=== PATIENT | male | born 1970 | race Caucasian/White ===

== ENCOUNTER 2017-07-22 05:54 | Emergency (ER) | payer SELFPAY ==
[~2017-07-22] VITALS: Ht 180.3 cm; Wt 79.3 kg
[2017-07-22] MEDS ORDERED: MORGIDOX 1X100100 MG PO (06:12)
[2017-07-22] MEDS ORDERED: PROAIR HFA0.09 MG/AC IH (06:12)
[2017-07-22 07:25] LABS: HEMATOCRIT 43.2 % (42.0-52.0); HEMOGLOBIN 14.7 g/dL (13.5-18.0); MEAN CELL VOLUME 96 fl (78-100); MEAN CORPUSCULAR HEMOGLOBIN 33 pg (27-31); MEAN CORPUSCULAR HGB CONC 34 g/dL (33-37); MEAN PLATELET VOLUME 9.3 fl (7.4-10.4); PLATELET COUNT 201 K/mm3 (130-400); RED BLOOD COUNT 4.52 M/mm3 (4.20-5.60); RED CELL DISTRIBUTION WIDTH 13.1 % (11.5-14.5); WHITE BLOOD COUNT 5.1 K/mm3 (4.8-10.8)
[2017-07-22 07:38] LABS: ALBUMIN 4.1 g/dL (3.5-5.0); BUN/CREATININE RATIO 13.8 (6.0-26.0); CALCIUM 8.9 mg/dL (8.4-10.2); POTASSIUM 4.6 mmol/L (3.6-5.0); TOTAL BILIRUBIN 0.5 mg/dL (0.2-1.3); TOTAL PROTEIN 7.9 g/dL (6.3-8.2)
[2017-07-22 07:48] LABS: PH-URINE 6.5 (5.0 - 8.0); URINE APPEARANCE CLEAR; URINE BILIRUBIN NEGATIVE (NEGATIVE); URINE BLOOD TRACE (NEGATIVE); URINE COLOR YELLOW; URINE GLUCOSE NEGATIVE (NEGATIVE); URINE KETONE NEGATIVE (NEGATIVE); URINE LEUKOCYTE ESTERASE NEGATIVE (NEGATIVE); URINE NITRATE NEGATIVE (NEGATIVE); URINE PROTEIN(semi-quant) NEGATIVE (NEGATIVE); URINE UROBILINOGEN NORMAL (NORMAL); URINE WBC 0-1 /hpf (0-3)
[2017-07-22] MEDS ORDERED: ZITHROMAX 250M250 MG PO (07:57)
[2017-07-22 08:01] LABS: BAND 9 % (0-10); LYMPHOCYTE 24 % (20-51); MONOCYTE 13 % (3-10); NEUTROPHILS 51 % (42-75)
[2017-07-22 08:08] VITALS: BP 123/72
== END 2017-07-22 08:06 | disposition home or self-care (01) ==
LOC: ED 05:54
PROVIDERS: Nurse Practitioner Primary Care
DX: J18.9 Pneumonia, unspecified organism (principal); Z87.891 Personal history of nicotine dependence

== ENCOUNTER → 2017-07-23 | Outpatient (CLI) | payer SELFPAY ==
[2017-07-22 08:08] VITALS: BP 123/72
[~2017-07-23] MED LIST: MORGIDOX 1X100100 MG PO; PROAIR HFA0.09 MG/AC IH; ZITHROMAX 250M250 MG PO
== END ==
LOC: RAD 12:58
DX: R59.0 Localized enlarged lymph nodes (principal)
CPT/HCPCS: Q9967

== ENCOUNTER → 2017-07-25 | Outpatient (CLI) | payer SELFPAY ==
[2017-07-22 08:08] VITALS: BP 123/72
== END ==
LOC: RAD 14:50
DX: R59.0 Localized enlarged lymph nodes (principal)
CPT/HCPCS: Q9967

== ENCOUNTER → 2017-07-27 | Outpatient (CLI) | payer SELFPAY ==
[2017-07-22 08:08] VITALS: BP 123/72
[2017-07-27 06:25] LABS: HEMATOCRIT 43.8 % (42.0-52.0); MEAN PLATELET VOLUME 8.9 fl (7.4-10.4); RED BLOOD COUNT 4.6 M/mm3 (4.20-5.60); RED CELL DISTRIBUTION WIDTH 13.1 % (11.5-14.5); WHITE BLOOD COUNT 5.7 K/mm3 (4.8-10.8)
[2017-07-27 06:47] LABS: BUN/CREATININE RATIO 12.6 (6.0-26.0); CALCIUM 9.1 mg/dL (8.4-10.2); POTASSIUM 4.1 mmol/L (3.6-5.0); TOTAL BILIRUBIN 0.5 mg/dL (0.2-1.3); TOTAL PROTEIN 7.9 g/dL (6.3-8.2)
== END ==
LOC: LAB 06:11
PROVIDERS: Nurse Practitioner Primary Care
DX: R59.0 Localized enlarged lymph nodes (principal)

== ENCOUNTER → 2017-08-03 | Outpatient (CLI) | payer SELFPAY ==
[2017-07-22 08:08] VITALS: BP 123/72
== END ==
LOC: LAB 09:50
DX: E78.2 Mixed hyperlipidemia (principal); R59.1 Generalized enlarged lymph nodes

== ENCOUNTER → 2017-08-22 | Outpatient (CLI) | payer SELFPAY ==
[~2017-08-22] VITALS: Ht 180.3 cm; Wt 77.3 kg
[2017-08-22 15:52] LABS: ALBUMIN 4.3 g/dL (3.5-5.0); ALT/SGPT 58 U/L (21-72); AST-SGOT 42 U/L (17-59); BUN/CREATININE RATIO 16.4 (6.0-26.0); CALCIUM 9.2 mg/dL (8.4-10.2); CARBON DIOXIDE 29 mmol/L (22-30); GLUCOSE 96 mg/dL (75-110); SODIUM 139 mmol/L (137-145); TOTAL BILIRUBIN 0.5 mg/dL (0.2-1.3); TOTAL PROTEIN 8.9 g/dL (6.3-8.2)
[2017-08-22 16:00] VITALS: BP 126/92
[2017-08-24 00:44] LABS: ANA SCREEN with REFLEX Negative (Negative)
== END ==
LOC: AMSURD 15:20
PROVIDERS: Internal Medicine Pulmonary Disease
DX: D86.9 Sarcoidosis, unspecified (principal)

== ENCOUNTER → 2017-09-27 | Outpatient (CLI) | payer SELFPAY ==
[2017-08-22 16:00] VITALS: BP 126/92
[2017-09-27 11:52] LABS: BUN/CREATININE RATIO 20.1 (6.0-26.0); CALCIUM 8.6 mg/dL (8.4-10.2); POTASSIUM 3.9 mmol/L (3.6-5.0)
[2017-09-27 11:54] LABS: HEMATOCRIT 44.9 % (42.0-52.0); HEMOGLOBIN 15.4 g/dL (13.5-18.0); MEAN CELL VOLUME 97 fl (78-100); MEAN CORPUSCULAR HEMOGLOBIN 33 pg (27-31); MEAN CORPUSCULAR HGB CONC 34 g/dL (33-37); MEAN PLATELET VOLUME 8.8 fl (7.4-10.4); PLATELET COUNT 294 K/mm3 (130-400); RED BLOOD COUNT 4.62 M/mm3 (4.20-5.60); RED CELL DISTRIBUTION WIDTH 13.6 % (11.5-14.5); WHITE BLOOD COUNT 5.1 K/mm3 (4.8-10.8)
[2017-09-27 12:20] LABS: LYMPHOCYTE 17 % (20-51); MONOCYTE 16 % (3-10); NEUTROPHILS 62 % (42-75)
[2017-09-27 15:37] LABS: C-REACTIVE PROTEIN XXX
== END ==
LOC: LAB 11:21
PROVIDERS: Internal Medicine Pulmonary Disease
DX: D86.9 Sarcoidosis, unspecified (principal)

== ENCOUNTER → 2017-11-06 | Outpatient (CLI) | payer SELFPAY ==
[2017-08-22 16:00] VITALS: BP 126/92
[~2017-11-06] MED LIST changes: +FOLIC ACID1 MG PO; +MELATIN 3 MG-11 TAB PO
[2017-11-06 13:20] LABS: HEMATOCRIT 47.1 % (42.0-52.0); HEMOGLOBIN 16.4 g/dL (13.5-18.0); MEAN CELL VOLUME 95 fl (78-100); MEAN CORPUSCULAR HEMOGLOBIN 33 pg (27-31); MEAN CORPUSCULAR HGB CONC 35 g/dL (33-37); MEAN PLATELET VOLUME 9.3 fl (7.4-10.4); PLATELET COUNT 321 K/mm3 (130-400); RED BLOOD COUNT 4.94 M/mm3 (4.20-5.60); RED CELL DISTRIBUTION WIDTH 13.2 % (11.5-14.5); WHITE BLOOD COUNT 5.6 K/mm3 (4.8-10.8)
[2017-11-06 13:21] LABS: ALBUMIN 4.4 g/dL (3.5-5.0); BUN/CREATININE RATIO 18.4 (6.0-26.0); CALCIUM 9.2 mg/dL (8.4-10.2); POTASSIUM 4.2 mmol/L (3.6-5.0); TOTAL BILIRUBIN 0.7 mg/dL (0.2-1.3); TOTAL PROTEIN 8.5 g/dL (6.3-8.2)
[2017-11-06 13:47] LABS: LYMPHOCYTE 15 % (20-51); MONOCYTE 12 % (3-10); NEUTROPHILS 71 % (42-75)
== END ==
LOC: LAB 12:38
PROVIDERS: Internal Medicine Pulmonary Disease
DX: D86.0 Sarcoidosis of lung (principal)

== ENCOUNTER 2017-11-07 14:54 | Emergency (ER) | payer SELFPAY ==
[~2017-11-07] VITALS: Ht 180.3 cm; Wt 78.2 kg
[~2017-11-07 14:54] MED LIST changes: -FOLIC ACID1 MG PO; -MELATIN 3 MG-11 TAB PO
[2017-11-07] MEDS ORDERED: FOLIC ACID1 MG PO (15:02)
[2017-11-07] MEDS ORDERED: MELATIN 3 MG-11 TAB PO (15:02)
[2017-11-07 16:15] VITALS: BP 126/66
== END 2017-11-07 16:22 | disposition home or self-care (01) ==
LOC: ED 14:54
DX: R42 Dizziness and giddiness (principal); T45.1X5A Adverse effect of antineoplastic and immunosuppressive drugs, initial encounter; R20.2 Paresthesia of skin; H53.8 Other visual disturbances; Z87.891 Personal history of nicotine dependence

== ENCOUNTER → 2017-12-26 | Outpatient (CLI) | payer SELFPAY ==
[~2017-12-26] MED LIST changes: +FOLIC ACID1 MG PO; +MELATIN 3 MG-11 TAB PO
[2017-12-26 12:05] LABS: HEMATOCRIT 44.6 % (42.0-52.0); HEMOGLOBIN 15.7 g/dL (13.5-18.0); MEAN CELL VOLUME 95 fl (78-100); MEAN CORPUSCULAR HEMOGLOBIN 34 pg (27-31); MEAN CORPUSCULAR HGB CONC 35 g/dL (33-37); PLATELET COUNT 328 K/mm3 (130-400); RED BLOOD COUNT 4.68 M/mm3 (4.20-5.60); RED CELL DISTRIBUTION WIDTH 12.4 % (11.5-14.5); WHITE BLOOD COUNT 8.9 K/mm3 (4.8-10.8)
[2017-12-26 12:12] LABS: ALBUMIN 4.7 g/dL (3.5-5.0); CALCIUM 9.3 mg/dL (8.4-10.2); POTASSIUM 3.7 mmol/L (3.6-5.0); TOTAL PROTEIN 8.2 g/dL (6.3-8.2)
[2017-12-26 14:53] LABS: LYMPHOCYTE 5 % (20-51); MONOCYTE 2 % (3-10); NEUTROPHILS 93 % (42-75)
== END ==
LOC: LAB 11:44
PROVIDERS: Internal Medicine Pulmonary Disease
DX: D86.0 Sarcoidosis of lung (principal)

== ENCOUNTER → 2018-02-20 | Outpatient (CLI) | payer SELFPAY ==
[2018-02-20 12:33] LABS: ALBUMIN 4.8 g/dL (3.5-5.0); DIRECT BILIRUBIN 0.4 mg/dL (0.0-0.4); TOTAL BILIRUBIN 0.8 mg/dL (0.2-1.3); TOTAL PROTEIN 8.1 g/dL (6.3-8.2)
== END ==
LOC: LAB 12:03
PROVIDERS: Internal Medicine Pulmonary Disease
DX: D86.0 Sarcoidosis of lung (principal)

== ENCOUNTER → 2018-03-28 | Outpatient (CLI) | payer SELFPAY ==
[2018-03-28 11:19] LABS: ALBUMIN 4.8 g/dL (3.5-5.0); DIRECT BILIRUBIN 0.5 mg/dL (0.0-0.4); TOTAL BILIRUBIN 1.2 mg/dL (0.2-1.3); TOTAL PROTEIN 7.9 g/dL (6.3-8.2)
== END ==
LOC: LAB 10:32
DX: D86.0 Sarcoidosis of lung (principal)

== ENCOUNTER → 2018-07-29 | Outpatient (CLI) | payer SELFPAY ==
[2018-04-24 15:47] VITALS: BP 122/75
[~2018-07-29] MED LIST changes: +CARAFATE 1GM1 G PO; +PREDNISONE10 MG PO; +PRILOSEC 20MG20 MG PO; +ZANTAC150 M1 PO
[2018-07-29 16:09] LABS: CALCIUM 9.5 mg/dL (8.4-10.2)
== END ==
LOC: LAB 15:03
PROVIDERS: Internal Medicine Pulmonary Disease
DX: D86.0 Sarcoidosis of lung (principal)

== ENCOUNTER → 2019-02-24 | Outpatient (CLI) | payer SELFPAY ==
[2018-04-24 15:47] VITALS: BP 122/75
== END ==
LOC: LAB 11:21
DX: D86.0 Sarcoidosis of lung (principal)

== ENCOUNTER → 2020-02-09 | Outpatient (CLI) | payer SELFPAY ==
[2018-04-24 15:47] VITALS: BP 122/75
== END ==
LOC: RAD 09:21
DX: M47.26 Other spondylosis with radiculopathy, lumbar region (principal)

== ENCOUNTER 2020-04-10 19:58 | Emergency (ER) | payer SELFPAY ==
[~2020-04-10] VITALS: Ht 180.3 cm; Wt 81.8 kg
[2020-04-10] MEDS ORDERED: MUCINEX D1 TER PO (20:23)
[2020-04-10 21:16] LABS: HEMATOCRIT 42.9 % (42.0-52.0); HEMOGLOBIN 14.6 g/dL (13.5-18.0); MEAN CELL VOLUME 97 fl (78-100); MEAN CORPUSCULAR HEMOGLOBIN 33 pg (27-31); MEAN CORPUSCULAR HGB CONC 34 g/dL (33-37); MEAN PLATELET VOLUME 8.8 fl (7.4-10.4); PLATELET COUNT 254 K/mm3 (130-400); RED BLOOD COUNT 4.43 M/mm3 (4.20-5.60); RED CELL DISTRIBUTION WIDTH 12.9 % (11.5-14.5); WHITE BLOOD COUNT 3.6 K/mm3 (4.8-10.8)
[2020-04-10 21:24] LABS: ALBUMIN 4.4 g/dL (3.5-5.0); BAND 2 % (0-10); LYMPHOCYTE 22 % (20-51); MONOCYTE 14 % (3-10); NEUTROPHILS 60 % (42-75); POTASSIUM 3.9 mmol/L (3.5-5.1)
[2020-04-10 21:27] LABS: TOTAL PROTEIN 7.8 g/dL (6.4-8.3)
[2020-04-10 21:28] LABS: TOTAL BILIRUBIN 0.3 mg/dL (0.2-1.2)
[2020-04-10] MEDS ORDERED: DECADRON 4MG TAB4 MG PO (21:51)
[2020-04-10 22:41] VITALS: BP 130/98
== END 2020-04-10 22:41 | disposition home or self-care (01) ==
LOC: ED 19:58
PROVIDERS: Family Medicine
DX: U07.1 COVID-19 (principal); K21.9 Gastro-esophageal reflux disease without esophagitis

== ENCOUNTER → 2021-07-15 | Outpatient (CLI) | payer SELFPAY ==
[~2021-07-15] MED LIST changes: +DECADRON 4MG TAB4 MG PO; +MUCINEX D1 TER PO
[2021-07-15 15:23] LABS: BASO # 0.02 K/mm3 (0.02-0.10); EOS # 0.24 K/mm3 (0.04-0.40); EOS % 3.9 % (0.0-4.0); HEMATOCRIT 44.7 % (42.0-52.0); HEMOGLOBIN 15.5 g/dL (13.5-18.0); LYMPH# 1.31 K/mm3 (1.50-4.00); MEAN CELL VOLUME 96 fl (78-100); MEAN CORPUSCULAR HEMOGLOBIN 33 pg (27-31); MEAN CORPUSCULAR HGB CONC 35 g/dL (33-37); MEAN PLATELET VOLUME 8.6 fl (7.4-10.4); MONO # 0.88 K/mm3 (0.20-0.80); NEU # 3.66 K/mm3 (1.40-6.50); PLATELET COUNT 317 K/mm3 (130-400); RED BLOOD COUNT 4.66 M/mm3 (4.20-5.60); RED CELL DISTRIBUTION WIDTH 13.5 % (11.5-14.5); WHITE BLOOD COUNT 6.1 K/mm3 (4.8-10.8)
[2021-07-15 15:30] LABS: ALBUMIN 4.4 g/dL (3.5-5.0); POTASSIUM 3.8 mmol/L (3.5-5.1)
[2021-07-15 15:32] LABS: CALCIUM 9.4 mg/dL (8.3-10.5)
[2021-07-15 15:33] LABS: TOTAL PROTEIN 7.6 g/dL (6.4-8.3)
[2021-07-15 15:35] LABS: TOTAL BILIRUBIN 0.6 mg/dL (0.2-1.2)
[2021-07-15 18:22] LABS: ERYTHROCYTE SEDIMENTATION RATE 1 mm/hr (0-15)
== END ==
LOC: LAB 15:11
PROVIDERS: Internal Medicine
DX: J45.20 Mild intermittent asthma, uncomplicated (principal); M54.16 Radiculopathy, lumbar region

== ENCOUNTER 2022-02-01 17:19 | Emergency (ER) | payer SELFPAY ==
[2022-02-01 17:47] LABS: URINE WBC 0 /hpf (0-3)
[2022-02-01 17:51] LABS: BASO # 0.03 K/mm3 (0.02-0.10); EOS # 0.22 K/mm3 (0.04-0.40); EOS % 3.2 % (0.0-4.0); HEMATOCRIT 44.1 % (42.0-52.0); HEMOGLOBIN 15.4 g/dL (13.5-18.0); LYMPH# 1.41 K/mm3 (1.50-4.00); MEAN CELL VOLUME 97 fl (78-100); MEAN CORPUSCULAR HEMOGLOBIN 34 pg (27-31); MEAN CORPUSCULAR HGB CONC 35 g/dL (33-37); MEAN PLATELET VOLUME 9.1 fl (7.4-10.4); MONO # 0.88 K/mm3 (0.20-0.80); NEU # 4.22 K/mm3 (1.40-6.50); PLATELET COUNT 284 K/mm3 (130-400); RED BLOOD COUNT 4.57 M/mm3 (4.20-5.60); RED CELL DISTRIBUTION WIDTH 12.6 % (11.5-14.5); WHITE BLOOD COUNT 6.8 K/mm3 (4.8-10.8)
[2022-02-01 18:15] LABS: URINE APPEARANCE CLEAR; URINE BILIRUBIN NEGATIVE (NEGATIVE); URINE BLOOD 50 ery/uL (NEGATIVE); URINE COLOR YELLOW; URINE GLUCOSE NEGATIVE (NEGATIVE); URINE KETONE NEGATIVE (NEGATIVE); URINE LEUKOCYTE ESTERASE NEGATIVE (NEGATIVE); URINE NITRATE NEGATIVE (NEGATIVE); URINE PROTEIN(semi-quant) TRACE (NEGATIVE); URINE UROBILINOGEN NORMAL (NORMAL)
[2022-02-01 18:18] LABS: ALBUMIN 4.5 g/dL (3.5-5.0); POTASSIUM 3.4 mmol/L (3.5-5.1)
[2022-02-01 18:20] LABS: TOTAL PROTEIN 8.1 g/dL (6.4-8.3)
[2022-02-01 18:22] LABS: TOTAL BILIRUBIN 0.7 mg/dL (0.2-1.2)
[2022-02-01] MEDS ORDERED: PROTONIX TR40 M1 PO (19:26)
[2022-02-01] MEDS ORDERED: PEPCID 20MG TAB20 MG PO (19:26)
[2022-02-01] MEDS ORDERED: CARAFATE 1GM1 G PO (19:26)
[2022-02-01 19:40] VITALS: BP 169/110
== END 2022-02-01 19:40 | disposition home or self-care (01) ==
LOC: ED 17:19
PROVIDERS: Physician Assistant
DX: K21.9 Gastro-esophageal reflux disease without esophagitis (principal); K59.00 Constipation, unspecified; I10 Essential (primary) hypertension; E87.6 Hypokalemia; Z28.310 Unvaccinated for COVID-19
CPT/HCPCS: Q9967

== ENCOUNTER → 2022-06-01 | Outpatient (CLI) | payer SELFPAY ==
[~2022-06-01] MED LIST changes: +PEPCID 20MG TAB20 MG PO; +PROTONIX TR40 M1 PO
[2022-06-01 09:24] LABS: BASO # 0.02 K/mm3 (0.02-0.10); EOS # 0.15 K/mm3 (0.04-0.40); EOS % 2.9 % (0.0-4.0); HEMATOCRIT 45.7 % (42.0-52.0); HEMOGLOBIN 15.8 g/dL (13.5-18.0); LYMPH# 0.94 K/mm3 (1.50-4.00); MEAN CELL VOLUME 97 fl (78-100); MEAN CORPUSCULAR HEMOGLOBIN 34 pg (27-31); MEAN CORPUSCULAR HGB CONC 35 g/dL (33-37); MEAN PLATELET VOLUME 8.7 fl (7.4-10.4); MONO # 0.78 K/mm3 (0.20-0.80); NEU # 3.28 K/mm3 (1.40-6.50); PLATELET COUNT 298 K/mm3 (130-400); RED BLOOD COUNT 4.69 M/mm3 (4.20-5.60); RED CELL DISTRIBUTION WIDTH 13.1 % (11.5-14.5); WHITE BLOOD COUNT 5.2 K/mm3 (4.8-10.8)
[2022-06-01 09:25] LABS: ALBUMIN 4.5 g/dL (3.5-5.0); POTASSIUM 4.3 mmol/L (3.5-5.1)
[2022-06-01 09:27] LABS: CALCIUM 9.8 mg/dL (8.3-10.5)
[2022-06-01 09:28] LABS: TOTAL PROTEIN 7.8 g/dL (6.4-8.3)
[2022-06-01 09:30] LABS: TOTAL BILIRUBIN 0.8 mg/dL (0.2-1.2)
[2022-06-01 10:31] LABS: ERYTHROCYTE SEDIMENTATION RATE 4 mm/hr (0-15)
== END ==
LOC: LAB 09:03
PROVIDERS: Internal Medicine
DX: D86.0 Sarcoidosis of lung (principal); J45.20 Mild intermittent asthma, uncomplicated; M54.16 Radiculopathy, lumbar region; M79.671 Pain in right foot; R06.00 Dyspnea, unspecified
CPT/HCPCS: Q9967

== ENCOUNTER → 2022-06-02 | Outpatient (CLI) | payer SELFPAY | LOC: LAB 10:34 | DX: J45.20 Mild intermittent asthma, uncomplicated (principal); M54.16 Radiculopathy, lumbar region; D86.0 Sarcoidosis of lung; M79.671 Pain in right foot; H91.93 Unspecified hearing loss, bilateral; R06.00 Dyspnea, unspecified ==